=== PATIENT | female | born 1935 | race Caucasian/White ===

== ENCOUNTER 2018-05-27 07:59 | Emergency (ER) | payer MEDICARE, OTHER ==
[~2018-05-27] VITALS: Ht 175.3 cm; Wt 136.1 kg
[~2018-05-27 07:59] MED LIST: AMLO5TAB13; ASPI-306; GLIM1TAB2; HYDR12.56; LEVO25TA9 PO; LISI40TA; METF-372
[2018-05-27] MEDS ORDERED: DEXTROSE (50%) 50ML SYRG IV ONE (09:30)
[2018-05-27 09:40] LABS: Basophils # (auto) 0.1 uL; Basophils % (auto) 0.7 % (0.0-2.0); Eosinophils # (auto) 0.2 uL; Eosinophils % (auto) 2.2 % (0.0-7.0); Hematocrit 39.5 % (36.0-46.0); Lymphocytes # (auto) 2.1 uL; Lymphocytes % (auto) 21.1 % (10.0-50.0); Mean Corpuscular Volume 90.9 fL (80.0-100.0); Monocytes # (auto) 0.7 uL; Monocytes % (auto) 6.6 % (0.0-12.0); Neutrophils # (auto) 7.1 uL; Neutrophils % (auto) 69.4 % (37.0-80.0); Platelet Count (auto) 246 10^3/uL (140-450); Red Blood Cells 4.34 10^6/uL (4.0-5.20); Red Cell Distribution Width 14.7 % (11.8-14.3); White Blood Cell 10.2 10^3/uL (4.4-10.8)
[2018-05-27 09:47] LABS: Alanine Aminotransferase 17 U/L (13-56); Albumin 3.5 g/dL (3.4-5.0); Anion Gap 10 (5-15); Aspartate Aminotransferase 17 U/L (15-37); BUN/Creatinine Ratio 22.1; Blood Urea Nitrogen 27 mg/dL (7-18); Calcium 8.6 mg/dL (8.5-10.1); Carbon Dioxide 24 mmol/L (21-32); Chloride 108 mmol/L (98-107); GFR African American 54 mL/min; GFR Non-African American 45 mL/min; Glucose 68 mg/dL (74-106); Magnesium 2.4 mg/dL (1.6-2.6); Potassium 3.6 mmol/L (3.5-5.1); Sodium 142 mmol/L (136-145)
[2018-05-27 09:52] LABS: Alkaline Phosphatase 78 U/L (45-117); Bilirubin, Total 0.6 mg/dL (0.2-1.0); Total Protein 7.4 g/dL (6.4-8.2)
[2018-05-27 12:46] LABS: Urine Bacteria FEW /hpf (None Seen); Urine Blood Negative /uL (Negative); Urine Hyaline Cast FEW /lpf (0 - 2); Urine Specific Gravity 1.012 (1.001-1.035); Urine WBC 1 /hpf (0 - 5)
[2018-05-27 14:19] VITALS: BP 99/69
== END 2018-05-27 14:34 | disposition home or self-care (01) ==
LOC: EDBD 07:59 → ER 08:02
DX: E11.649 Type 2 diabetes mellitus with hypoglycemia without coma (principal); T38.3X5A Adverse effect of insulin and oral hypoglycemic [antidiabetic] drugs, initial encounter; I10 Essential (primary) hypertension; Z79.4 Long term (current) use of insulin; Z79.899 Other long term (current) drug therapy; Y92.89 Other specified places as the place of occurrence of the external cause
CPT/HCPCS: 36415; 70450; 71045; 80053; 81001; 82962; 83735; 84484; 85025; 93005; 96374; 99284; J7042

== ENCOUNTER 2018-12-04 07:17 | Inpatient (IN) | payer OTHER | END 2018-12-11 14:30 | disposition home or self-care (01) | LOC: ER 07:17 → TELE 07:19 → TELE-EAST 20:20 | PROC: 0FT44ZZ Resection of Gallbladder, Percutaneous Endoscopic Approach (ICD-10-PCS; principal; 2018-12-08 15:35) | DX: K80.10 Calculus of gallbladder with chronic cholecystitis without obstruction (principal); D68.9 Coagulation defect, unspecified; R10.9 Unspecified abdominal pain; I48.2 Chronic atrial fibrillation; Z79.01 Long term (current) use of anticoagulants; K82.8 Other specified diseases of gallbladder ==

== ENCOUNTER 2019-03-27 01:33 | Emergency (ER) | payer OTHER ==
[~2019-03-27] VITALS: Ht 157.5 cm; Wt 124.7 kg
[~2019-03-27 01:33] MED LIST changes: +ACET500T43 PO; -AMLO5TAB13; +AMLO5TAB15; -LISI40TA; +LISI40TA PO
[2019-03-27 02:50] LABS: Basophils # (auto) 0 uL; Basophils % (auto) 0.5 % (0.0-2.0); Eosinophils # (auto) 0.2 uL; Eosinophils % (auto) 2.6 % (0.0-7.0); Hematocrit 32.3 % (36.0-46.0); Hemoglobin 10.8 g/dL (12.2-16.2); Lymphocytes # (auto) 1.6 uL; Lymphocytes % (auto) 26.9 % (10.0-50.0); Mean Corpuscular Hemoglobin 30.4 pg (28.0-32.0); Mean Corpuscular Hgb Conc. 33.4 g/dL (32.0-36.0); Mean Corpuscular Volume 91.2 fL (80.0-100.0); Monocytes # (auto) 0.5 uL; Neutrophils # (auto) 3.7 uL; Nucleated Red Blood Cells % 0.1 %; Platelet Count (auto) 227 10^3/uL (140-450); Red Blood Cells 3.55 10^6/uL (4.0-5.20); Red Cell Distribution Width 16.1 % (11.8-14.3)
[2019-03-27 03:12] LABS: Alanine Aminotransferase 9 U/L (13-56); Albumin 3.3 g/dL (3.4-5.0); Anion Gap 7 (5-15); Aspartate Aminotransferase 15 U/L (15-37); BUN/Creatinine Ratio 16.7; Blood Alcohol < 3.0 mg/dL (0-5); Blood Urea Nitrogen 21 mg/dL (7-18); Calcium 8.3 mg/dL (8.5-10.1); Carbon Dioxide 25 mmol/L (21-32); Chloride 112 mmol/L (98-107); GFR African American 52 mL/min; GFR Non-African American 43 mL/min; Glucose 55 mg/dL (74-106); Potassium 3.3 mmol/L (3.5-5.1); Sodium 144 mmol/L (136-145)
[2019-03-27 03:17] LABS: Alkaline Phosphatase 64 U/L (45-117); Bilirubin, Total 0.7 mg/dL (0.2-1.0); Total Protein 6.7 g/dL (6.4-8.2)
[2019-03-27] MEDS ORDERED: POTASSIUM EFFERVESENT TAB 25 MEQ PO ONE (09:00)
[2019-03-27 11:58] VITALS: BP 116/56
[2019-03-27 13:11] LABS: Urine Bacteria NONE SEEN /hpf (None Seen); Urine Blood Negative /uL (Negative); Urine Mucus FEW (None Seen); Urine Specific Gravity 1.025 (1.001-1.035); Urine WBC 35 /hpf (0 - 5)
[2019-03-27 13:23] LABS: Alcohol, Urine < 3.0 mg/dL (0-5); Amphetamine Screen, Urine NEGATIVE (NEGATIVE); Barbiturate Scree,Urine NEGATIVE (NEGATIVE); Benzodiazephine Screen, Urine NEGATIVE (NEGATIVE); Cannabinoid Screen, Urine NEGATIVE (NEGATIVE); Cocaine Screen, Urine NEGATIVE (NEGATIVE); Opiate Scree,Urine NEGATIVE (NEGATIVE); Phencyclidine Screen, Urine NEGATIVE (NEGATIVE)
== END 2019-03-27 13:58 | disposition home or self-care (01) ==
LOC: EDBD 01:33 → ER 01:38
DX: E11.649 Type 2 diabetes mellitus with hypoglycemia without coma (principal); G93.41 Metabolic encephalopathy; E66.01 Morbid (severe) obesity due to excess calories; E87.6 Hypokalemia; E11.21 Type 2 diabetes mellitus with diabetic nephropathy; E46 Unspecified protein-calorie malnutrition; D53.9 Nutritional anemia, unspecified; R09.89 Other specified symptoms and signs involving the circulatory and respiratory systems; I25.10 Atherosclerotic heart disease of native coronary artery without angina pectoris; I11.0 Hypertensive heart disease with heart failure; I50.9 Heart failure, unspecified; Z90.49 Acquired absence of other specified parts of digestive tract; Z95.0 Presence of cardiac pacemaker; Z79.82 Long term (current) use of aspirin; Z79.899 Other long term (current) drug therapy
CPT/HCPCS: 36415; 70450; 71045; 80053; 80307; 80320; 81001; 82962; 84484; 85025; 93005; 94761

== ENCOUNTER 2019-04-01 08:31 | Emergency (ER) | payer OTHER ==
[~2019-04-01] VITALS: Ht 177.8 cm; Wt 122.5 kg
[2019-04-01 09:17] LABS: Basophils # (auto) 0.1 uL; Basophils % (auto) 0.5 % (0.0-2.0); Eosinophils # (auto) 0.1 uL; Eosinophils % (auto) 0.7 % (0.0-7.0); Hematocrit 35.8 % (36.0-46.0); Hemoglobin 11.6 g/dL (12.2-16.2); Lymphocytes # (auto) 1.6 uL; Lymphocytes % (auto) 15.6 % (10.0-50.0); Mean Corpuscular Hemoglobin 29.6 pg (28.0-32.0); Mean Corpuscular Hgb Conc. 32.5 g/dL (32.0-36.0); Mean Corpuscular Volume 91.2 fL (80.0-100.0); Monocytes # (auto) 0.7 uL; Monocytes % (auto) 7.2 % (0.0-12.0); Neutrophils # (auto) 7.9 uL; Nucleated Red Blood Cells % 0.1 %; Platelet Count (auto) 266 10^3/uL (140-450); Red Blood Cells 3.92 10^6/uL (4.0-5.20); Red Cell Distribution Width 16.1 % (11.8-14.3); White Blood Cell 10.4 10^3/uL (4.4-10.8)
[2019-04-01] MEDS ORDERED: ONDANSETRON HCL 4 MG/2 ML VIAL ONE (09:27)
[2019-04-01] MEDS ORDERED: MORPHINE SULFATE 4 MG/ML SYR/VIAL ONE (09:27)
[2019-04-01 09:33] LABS: Albumin 3.6 g/dL (3.4-5.0); Calcium 8.5 mg/dL (8.5-10.1); Potassium 4.3 mmol/L (3.5-5.1)
[2019-04-01 09:37] LABS: BUN/Creatinine Ratio 17.4; Bilirubin, Total 0.9 mg/dL (0.2-1.0); Partial Thromboplastin Time 39.8 sec (23.64-32.05); Total Protein 7.4 g/dL (6.4-8.2)
[2019-04-01] MEDS ORDERED: ONDANSETRON HCL 4 MG/2 ML VIAL IV ONE (09:45)
[2019-04-01] MEDS ORDERED: MORPHINE SULFATE 4 MG/ML SYR/VIAL IV ONE (09:45)
[2019-04-01 09:46] LABS: INR 4.25 (0.9-1.15)
[2019-04-01] MEDS ORDERED: WARF5TAB71 PO (09:50)
[2019-04-01 10:54] VITALS: BP 104/55
== END 2019-04-01 12:29 | disposition home or self-care (01) ==
LOC: ER 08:36
DX: S52.501A Unspecified fracture of the lower end of right radius, initial encounter for closed fracture (principal); D68.9 Coagulation defect, unspecified; E66.01 Morbid (severe) obesity due to excess calories; E11.649 Type 2 diabetes mellitus with hypoglycemia without coma; I10 Essential (primary) hypertension; Z68.38 Body mass index [BMI] 38.0-38.9, adult; Z79.899 Other long term (current) drug therapy; Z79.82 Long term (current) use of aspirin; W18.39XA Other fall on same level, initial encounter; Y93.89 Activity, other specified; Y92.89 Other specified places as the place of occurrence of the external cause; Y99.8 Other external cause status
CPT/HCPCS: 29125; 36415; 71045; 73110; 80053; 82962; 85025; 85610; 85730; 93005; 94761; 96374; 96375; 99284; J2270; J2405

== ENCOUNTER 2022-10-26 19:33 | Emergency (ER) | payer OTHER ==
[~2022-10-26] VITALS: Ht 177.8 cm; Wt 109.0 kg
[~2022-10-26 19:33] MED LIST changes: +AMLO-489; -AMLO5TAB15; +GLIM-5; -GLIM1TAB2; -LISI40TA PO; +LISI40TA11 PO; +WARF5TAB71 PO
[2022-10-26] MEDS ORDERED: ONDANSETRON ODT 4 MG TAB PO ONE (20:30)
[2022-10-26] MEDS ORDERED: HYDROcodone-ACET 5/325MG TAB PO ONE (20:30)
[2022-10-26 21:17] LABS: Basophils # (auto) 0.1 10 ^3/uL (0-0.2); Basophils % (auto) 0.7 % (0.0-2.0); Eosinophils # (auto) 0.3 10 ^3/uL (0-0.8); Hematocrit 38.9 % (36.0-46.0); Hemoglobin 12.9 g/dL (12.2-16.2); Lymphocytes # (auto) 2.4 10 ^3/uL (0.4-5.4); Lymphocytes % (auto) 25.2 % (10.0-50.0); Mean Corpuscular Hemoglobin 28.1 pg (28.0-32.0); Mean Corpuscular Volume 85.1 fL (80.0-100.0); Monocytes # (auto) 0.6 10 ^3/uL (0-1.3); Monocytes % (auto) 6.4 % (0.0-12.0); Neutrophils # (auto) 6.2 10 ^3/uL (1.6-8.6); Neutrophils % (auto) 64.7 % (37.0-80.0); Nucleated Red Blood Cells % 0.1 %; Red Blood Cells 4.58 10^6/uL (4.0-5.20); Red Cell Distribution Width 16.4 % (11.8-14.3); White Blood Cell 9.6 10^3/uL (4.4-10.8)
[2022-10-26 21:35] LABS: INR 2.14 (0.9-1.15); Partial Thromboplastin Time 36.3 sec (24.6-33.4)
[2022-10-26 21:40] LABS: Calcium 9.7 mg/dL (8.5-10.1); Potassium 4.3 mmol/L (3.5-5.1)
[2022-10-26 21:46] LABS: Albumin 3.6 g/dL (3.4-5.0); BUN/Creatinine Ratio 23.3 (10.0-20.0); Bilirubin, Total 0.5 mg/dL (0.2-1.0); Total Protein 7.5 g/dL (6.4-8.2)
[2022-10-27 02:20] VITALS: BP 122/70
== END 2022-10-27 02:25 | disposition home or self-care (01) ==
LOC: ER 19:33
DX: E11.65 Type 2 diabetes mellitus with hyperglycemia (principal); E11.22 Type 2 diabetes mellitus with diabetic chronic kidney disease; I13.0 Hypertensive heart and chronic kidney disease with heart failure and stage 1 through stage 4 chronic kidney disease, or unspecified chronic kidney disease; N18.9 Chronic kidney disease, unspecified; I50.9 Heart failure, unspecified; K57.90 Diverticulosis of intestine, part unspecified, without perforation or abscess without bleeding; Z90.49 Acquired absence of other specified parts of digestive tract
CPT/HCPCS: 36415; 71045; 74176; 80053; 82010; 82962; 83605; 83690; 83880; 83930; 84484; 85025; 85610; 85730; 99284; Q0162

== ENCOUNTER 2022-11-02 14:22 | Inpatient (IN) | payer OTHER ==
[~2022-11-02] VITALS: Ht 177.8 cm; Wt 113.9 kg
[2022-11-02] VITALS (14 sets, daily range): BP systolic 100–131; BP diastolic 35–55
[~2022-11-02 14:22] MED LIST changes: -AMLO-489; +AMLO1TAB22; +GLIM-38; -GLIM-5; -HYDR12.56; +HYDR12.59; -LISI40TA11 PO; +LISI40TA16 PO; +WARF-66 PO; -WARF5TAB71 PO
[2022-11-02] MEDS ORDERED: MORPHINE SULFATE INJ 2 MG/ml SYRG IV ONE (16:00)
[2022-11-02] MEDS ORDERED: metroNIDAZOLE 500MG/100ML 100 ML IV ONE (16:00)
[2022-11-02] MEDS ORDERED: cefTRIAXone 1GM/50ML D5W 50 ML IV ONE (16:00)
[2022-11-02] MEDS ORDERED: ONDANSETRON HCL 4 MG/2 ML VIAL IV ONE (16:00)
[2022-11-02] MEDS ORDERED: SODIUM CHLORIDE 0.9% 1,000 ML IV ONE (16:00)
[2022-11-02 16:27] LABS: Hematocrit 38.3 % (36.0-46.0); Hemoglobin 12.4 g/dL (12.2-16.2); Mean Corpuscular Hemoglobin 27.3 pg (28.0-32.0); Mean Corpuscular Hgb Conc. 32.4 g/dL (32.0-36.0); Mean Corpuscular Volume 84.4 fL (80.0-100.0); Red Blood Cells 4.54 10^6/uL (4.0-5.20); Red Cell Distribution Width 17.3 % (11.8-14.3); White Blood Cell 9.4 10^3/uL (4.4-10.8)
[2022-11-02] MEDS ORDERED: PIPERACILLIN-TAZOB 3.375GM 100 ML IV ONE (16:30)
[2022-11-02 16:37] LABS: Basophils % (manual) 0 (0.0-2.0); Blast Cells 0; Eosinophils % (manual) 0 (0-7); Myelocytes % 0; Promyelocytes % 0; Reactive Lymphocytes 0
[2022-11-02 16:44] LABS: Albumin 2.8 g/dL (3.4-5.0); Calcium 8.2 mg/dL (8.5-10.1); Potassium 3.3 mmol/L (3.5-5.1)
[2022-11-02 16:48] LABS: BUN/Creatinine Ratio 34.9 (10.0-20.0); Bilirubin, Total 0.4 mg/dL (0.2-1.0); Total Protein 6.8 g/dL (6.4-8.2)
[2022-11-02 16:58] LABS: Urine Bacteria NONE SEEN /hpf (None Seen); Urine Blood Negative /uL (Negative); Urine Hyaline Cast FEW /lpf (0 - 2); Urine Mucus FEW (None Seen); Urine Specific Gravity 1.027 (1.001-1.035); Urine WBC 8 /hpf (0 - 5)
[2022-11-02 17:02] LABS: Band Neutrophils % (manual) 11; Lymphocytes % (manual) 9 (10.0-50.0); Metamyelocytes % 4; Monocytes % (manual) 1 (0-12)
[2022-11-02 17:12] LABS: Partial Thromboplastin Time 49.7 sec (24.6-33.4)
[2022-11-02 17:21] LABS: INR 5.89 (0.9-1.15)
[2022-11-02] MEDS ORDERED: SUCCINYLCHOLINE CHLORIDE 20 MG/ML 10ML VIAL IV ONE (17:22)
[2022-11-02] MEDS ORDERED: PHYTONADIONE (VIT K)10 MG/ML 1ML VIAL SUBCUT ONE ×2 (17:30)
[2022-11-02] MEDS ORDERED: D5W/SOD CHL 0.45%/KCL 20MEQ 1,000 ML IV ONE (17:45)
[2022-11-02] MEDS ORDERED: DOCUSATE SOD 100 MG CAP PO PRN (21:00)
[2022-11-02] MEDS ORDERED: DEXTROSE (50%) 50ML SYRG IV PRN (21:00)
[2022-11-02] MEDS ORDERED: ACETAMINOPHEN 325 MG TAB PO PRN (21:00)
[2022-11-02] MEDS ORDERED: NITROGLYCERIN 0.4 MG SL TAB SL PRN (21:00)
[2022-11-02] MEDS ORDERED: SODIUM CHLORIDE 0.9% 1,000 ML IV SCH (21:00)
[2022-11-02] MEDS ORDERED: MORPHINE SULFATE INJ 2 MG/ml SYRG IV PRN (21:00)
[2022-11-02] MEDS: MORPHINE SULFATE INJ 2 MG/ml SYRG IV PRN (21:42)
[2022-11-02] MEDS: FAMOTIDINE (10MG/ML) 2ML VL IV SCH (21:57)
[2022-11-02] MEDS ORDERED: phytonadione 1 ML ONE (22:00)
[2022-11-03] VITALS (73 sets, daily range): BP systolic 71–136; BP diastolic 32–88
[2022-11-03] MEDS: ACCU-CHEK COMFORT CURVE STRIP VI SCH ×5 (00:33→23:43)
[2022-11-03] MEDS: InsuLIN REG 1unit/0.01ml Soln (100units/ml) SC SCH ×5 (00:34→23:44)
[2022-11-03] MEDS: metroNIDAZOLE 500MG/100ML 100 ML IV SCH ×3 (00:37→21:26)
[2022-11-03] MEDS: MORPHINE SULFATE INJ 2 MG/ml SYRG IV PRN ×2 (02:08→08:39)
[2022-11-03 04:47] LABS: Basophils # (auto) 0 10 ^3/uL (0-0.2); Basophils % (auto) 0.2 % (0.0-2.0); Eosinophils # (auto) 0 10 ^3/uL (0-0.8); Eosinophils % (auto) 0.1 % (0.0-7.0); Hematocrit 35.2 % (36.0-46.0); Hemoglobin 11.8 g/dL (12.2-16.2); Lymphocytes # (auto) 1.6 10 ^3/uL (0.4-5.4); Lymphocytes % (auto) 11.2 % (10.0-50.0); Mean Corpuscular Hemoglobin 27.8 pg (28.0-32.0); Mean Corpuscular Hgb Conc. 33.5 g/dL (32.0-36.0); Monocytes # (auto) 0.4 10 ^3/uL (0-1.3); Monocytes % (auto) 2.9 % (0.0-12.0); Neutrophils # (auto) 12.2 10 ^3/uL (1.6-8.6); Neutrophils % (auto) 85.6 % (37.0-80.0); Red Blood Cells 4.24 10^6/uL (4.0-5.20); Red Cell Distribution Width 16.7 % (11.8-14.3); White Blood Cell 14.3 10^3/uL (4.4-10.8)
[2022-11-03 04:59] LABS: Partial Thromboplastin Time 33.8 sec (24.6-33.4)
[2022-11-03 05:02] LABS: Albumin 2.3 g/dL (3.4-5.0)
[2022-11-03 05:03] LABS: INR 4.17 (0.9-1.15)
[2022-11-03 05:06] LABS: BUN/Creatinine Ratio 37.7 (10.0-20.0); Bilirubin, Total 0.3 mg/dL (0.2-1.0); Total Protein 5.3 g/dL (6.4-8.2)
[2022-11-03] MEDS ORDERED: PHYTONADIONE (VIT K)10 MG/ML 1ML VIAL SUBCUT ONE (05:30)
[2022-11-03] MEDS: POTASSIUM CHL 20MEQ/100ML 100 ML IV SCH ×2 (05:57→09:47)
[2022-11-03] MEDS: LEVOTHYROXINE SODIUM 25 MCG TAB PO SCH (07:00)
[2022-11-03] MEDS ORDERED: cefTRIAXone 1GM/50ML D5W 50 ML IV SCH (09:00)
[2022-11-03] MEDS: FAMOTIDINE (10MG/ML) 2ML VL IV SCH ×2 (11:37→21:26)
[2022-11-03 11:42] LABS: INR 2.41 (0.9-1.15); Partial Thromboplastin Time 43.2 sec (24.6-33.4)
[2022-11-03] MEDS ORDERED: HYDROmorphone HCL 2 MG/ML VL/or syr ONE (12:04)
[2022-11-03] MEDS ORDERED: fentaNYL CITRATE 100 MCG/2 ML VL ONE (12:04)
[2022-11-03] MEDS ORDERED: MIDAZOLAM HCL 2MG/2ML 2ml VIAL (1mg/ml) ONE (12:05)
[2022-11-03] MEDS ORDERED: fentaNYL CITRATE 5 ML ONE (12:16)
[2022-11-03] MEDS ORDERED: NOREPINEPHRINE 8 MG/250ML KIT 0 ML IV ONE (13:02)
[2022-11-03] MEDS ORDERED: ROCURONIUM 10MG/ML 10ML VIAL IV ONE (13:24)
[2022-11-03] MEDS ORDERED: POVIDONE IODINE 10 % TOPICAL OINT 30GM TOP ONE (14:28)
[2022-11-03] MEDS ORDERED: MIDAZOLAM DRIP 50 mg/50mL 50 ML IV SCH (15:00)
[2022-11-03] MEDS: NOREPINEPHRINE 8 MG/250ML KIT 250 ML IV SCH (15:15)
[2022-11-03] MEDS: MIDAZOLAM DRIP 50 mg/50mL 50 ML IV SCH (15:15)
[2022-11-03] MEDS: fentaNYL Drip 2500mCg/250mlNS 250 ML IV SCH ×2 (15:15→21:34)
[2022-11-03] MEDS ORDERED: NOREPINEPHRINE 8 MG/250ML KIT 250 ML IV ONE (15:20)
[2022-11-03] MEDS: D5W/SOD CHL 0.45%/KCL 20MEQ 1,000 ML IV SCH ×2 (16:01→23:46)
[2022-11-03] MEDS: PIPERACILLIN-TAZOB 3.375GM 100 ML IV SCH (23:46)
[2022-11-04] VITALS (109 sets, daily range): BP systolic 69–252; BP diastolic 39–242
[2022-11-04] MEDS: NOREPINEPHRINE 8 MG/250ML KIT 250 ML IV SCH ×2 (01:01→21:18)
[2022-11-04 04:35] LABS: INR 2.42 (0.9-1.15); Partial Thromboplastin Time 29.8 sec (24.6-33.4)
[2022-11-04 04:44] LABS: Basophils # (auto) 0 10 ^3/uL (0-0.2); Eosinophils # (auto) 0 10 ^3/uL (0-0.8); Hematocrit 40.6 % (36.0-46.0); Hemoglobin 13.2 g/dL (12.2-16.2); Lymphocytes # (auto) 1.4 10 ^3/uL (0.4-5.4); Lymphocytes % (auto) 6.9 % (10.0-50.0); Mean Corpuscular Hgb Conc. 32.5 g/dL (32.0-36.0); Mean Corpuscular Volume 86.1 fL (80.0-100.0); Monocytes # (auto) 0.5 10 ^3/uL (0-1.3); Monocytes % (auto) 2.5 % (0.0-12.0); Neutrophils # (auto) 18.5 10 ^3/uL (1.6-8.6); Neutrophils % (auto) 90.6 % (37.0-80.0); Nucleated Red Blood Cells % 0.1 %; Red Blood Cells 4.71 10^6/uL (4.0-5.20); Red Cell Distribution Width 17.3 % (11.8-14.3); White Blood Cell 20.4 10^3/uL (4.4-10.8)
[2022-11-04] MEDS: metroNIDAZOLE 500MG/100ML 100 ML IV SCH ×3 (05:04→21:58)
[2022-11-04] MEDS: ACCU-CHEK COMFORT CURVE STRIP VI SCH ×4 (05:41→23:47)
[2022-11-04] MEDS: InsuLIN REG 1unit/0.01ml Soln (100units/ml) SC SCH ×4 (05:51→23:51)
[2022-11-04] MEDS: LEVOTHYROXINE SODIUM 25 MCG TAB PO SCH (05:52)
[2022-11-04 07:08] LABS: Potassium 4.5 mmol/L (3.5-5.1)
[2022-11-04 07:16] LABS: BUN/Creatinine Ratio 22.4 (10.0-20.0); Calcium 7.6 mg/dL (8.5-10.1)
[2022-11-04] MEDS: FAMOTIDINE (10MG/ML) 2ML VL IV SCH (08:01)
[2022-11-04] MEDS: PANTOPRAZOLE 40 MG/10 ML VIAL INJ IV SCH (08:01)
[2022-11-04] MEDS: PIPERACILLIN-TAZOB 3.375GM 100 ML IV SCH ×3 (08:01→23:39)
[2022-11-04] MEDS ORDERED: cefTRIAXone 1GM/50ML D5W 50 ML IV SCH (09:00)
[2022-11-04] MEDS: D5W/SOD CHL 0.45%/KCL 20MEQ 1,000 ML IV SCH (09:06)
[2022-11-04] MEDS ORDERED: SODIUM CHLORIDE 0.9% 500 ML IV ONE (11:30)
[2022-11-04] MEDS ORDERED: VANCOMYCIN PER PHARMACY 0 MG IV SCH (12:15)
[2022-11-04] MEDS: VANCOMYCIN 1GM/250ML 250 ML IV SCH (12:36)
[2022-11-04] MEDS ORDERED: FUROSEMIDE 100 MG/10ML VIAL IV ONE (13:15)
[2022-11-04] MEDS ORDERED: TPN PER PHARMACY 0 ML IV SCH (13:30)
[2022-11-04 14:34] LABS: Magnesium 1.8 mg/dL (1.6-2.6); Phosphorus 2.2 mg/dL (2.5-4.90)
[2022-11-04] MEDS: MIDAZOLAM DRIP 50 mg/50mL 50 ML IV SCH (15:15)
[2022-11-04] MEDS ORDERED: LIDOCAINE 1% (LOCAL ANESTH.) PF 5ml SDV ID ONE (16:30)
[2022-11-04] MEDS: SODIUM CHLORIDE 0.9% 1,000 ML IV SCH (17:31)
[2022-11-04] MEDS ORDERED: SODIUM PHOSPH 24MEQ(18MMOL) IN NS 100 ML IV ONE (18:30)
[2022-11-04] MEDS: AMINO ACID INFUSION IN D10W 1,000 ML IV NR (20:03)
[2022-11-04] MEDS: fentaNYL Drip 2500mCg/250mlNS 250 ML IV SCH (21:19)
[2022-11-04] MEDS: SODIUM CHLOR 0.9% PF (SALINE LOCK) 10ML VIAL/SYR IV SCH (21:58)
[2022-11-05] VITALS (78 sets, daily range): BP systolic 84–148; BP diastolic 35–101
[2022-11-05] MEDS ORDERED: DEXTROSE (50%) 50ML SYRG IV SCH
[2022-11-05] MEDS: SODIUM CHLORIDE 0.9% 1,000 ML IV SCH ×3 (03:21→20:06)
[2022-11-05 04:33] LABS: Basophils # (auto) 0 10 ^3/uL (0-0.2); Basophils % (auto) 0.1 % (0.0-2.0); Eosinophils # (auto) 0 10 ^3/uL (0-0.8); Hematocrit 33.6 % (36.0-46.0); Lymphocytes # (auto) 0.9 10 ^3/uL (0.4-5.4); Lymphocytes % (auto) 4.5 % (10.0-50.0); Mean Corpuscular Hemoglobin 27.8 pg (28.0-32.0); Mean Corpuscular Hgb Conc. 32.8 g/dL (32.0-36.0); Mean Corpuscular Volume 84.8 fL (80.0-100.0); Monocytes # (auto) 0.4 10 ^3/uL (0-1.3); Monocytes % (auto) 2.1 % (0.0-12.0); Neutrophils # (auto) 19.1 10 ^3/uL (1.6-8.6); Neutrophils % (auto) 93.3 % (37.0-80.0); Nucleated Red Blood Cells % 0.1 %; Red Blood Cells 3.96 10^6/uL (4.0-5.20); Red Cell Distribution Width 17.4 % (11.8-14.3); White Blood Cell 20.5 10^3/uL (4.4-10.8)
[2022-11-05 04:50] LABS: Magnesium 1.6 mg/dL (1.6-2.6); Potassium 3.7 mmol/L (3.5-5.1)
[2022-11-05 04:56] LABS: Albumin 1.9 g/dL (3.4-5.0); BUN/Creatinine Ratio 29.1 (10.0-20.0); Bilirubin, Total 0.2 mg/dL (0.2-1.0); Calcium 7.8 mg/dL (8.5-10.1); Phosphorus 1.3 mg/dL (2.5-4.90); Total Protein 5.3 g/dL (6.4-8.2)
[2022-11-05] MEDS: InsuLIN REG 1unit/0.01ml Soln (100units/ml) SC SCH ×3 (05:52→18:00)
[2022-11-05] MEDS: metroNIDAZOLE 500MG/100ML 100 ML IV SCH (05:53)
[2022-11-05] MEDS: ACCU-CHEK COMFORT CURVE STRIP VI SCH ×3 (05:53→17:51)
[2022-11-05] MEDS: LEVOTHYROXINE SODIUM 25 MCG TAB PO SCH (06:56)
[2022-11-05] MEDS: PIPERACILLIN-TAZOB 3.375GM 100 ML IV SCH ×2 (08:22→16:29)
[2022-11-05] MEDS: VANCOMYCIN 1GM/250ML 250 ML IV SCH (08:22)
[2022-11-05] MEDS: SODIUM CHLOR 0.9% PF (SALINE LOCK) 10ML VIAL/SYR IV SCH ×2 (09:36→22:12)
[2022-11-05] MEDS: PANTOPRAZOLE 40 MG/10 ML VIAL INJ IV SCH (09:36)
[2022-11-05] MEDS ORDERED: POTASSIUM PHOSPHATE 22 MEQ in SODIUM CHL 0.9% 100 ML IV ONE ×2 (11:45→16:15)
[2022-11-05] MEDS: MAGNESIUM SULFATE 1GM/100ML 100 ML IV SCH ×2 (12:16→14:05)
[2022-11-05] MEDS: MIDAZOLAM DRIP 50 mg/50mL 50 ML IV SCH (15:15)
[2022-11-05] MEDS ORDERED: SODIUM PHOSPHATES 24 MEQ in SODIUM CHL 0.9% 100 ML IV ONE (16:00)
[2022-11-05] MEDS: MORPHINE SULFATE INJ 2 MG/ml SYRG IV PRN (18:04)
[2022-11-05] MEDS ORDERED: FUROSEMIDE 40 MG/4 ML VIAL IV ONE (19:15)
[2022-11-05] MEDS ORDERED: TPN PER PHARMACY IV NR ×9 (20:00)
[2022-11-05] MEDS: AMINO ACID INFUSION IN D10W 1,000 ML IV NR (20:02)
[2022-11-05] MEDS ORDERED: ACETAMINOPHEN IV 1000 MG/100ML (10MG/ML) IV ONE (21:15)
[2022-11-05] MEDS ORDERED: ACETAMINOPHEN IV 1000 MG/100ML (10MG/ML) IV PRN (21:45)
[2022-11-06] VITALS (30 sets, daily range): BP systolic 106–148; BP diastolic 50–96
[2022-11-06] MEDS: HYDROmorphone HCL 2 MG/ML VL/or syr IV PRN ×3 (00:29→19:25)
[2022-11-06] MEDS: PIPERACILLIN-TAZOB 3.375GM 100 ML IV SCH ×3 (00:35→17:35)
[2022-11-06] MEDS: ACCU-CHEK COMFORT CURVE STRIP VI SCH ×4 (01:16→17:43)
[2022-11-06] MEDS: InsuLIN REG 1unit/0.01ml Soln (100units/ml) SC SCH ×4 (01:17→17:45)
[2022-11-06] MEDS: VANCOMYCIN 1GM/250ML 250 ML IV SCH ×2 (02:36→20:37)
[2022-11-06 04:28] LABS: Potassium 3.3 mmol/L (3.5-5.1)
[2022-11-06 04:35] LABS: Albumin 1.8 g/dL (3.4-5.0); BUN/Creatinine Ratio 26.7 (10.0-20.0); Bilirubin, Total 0.4 mg/dL (0.2-1.0); Calcium 7.6 mg/dL (8.5-10.1); Magnesium 1.7 mg/dL (1.6-2.6); Phosphorus 1.7 mg/dL (2.5-4.90); Total Protein 5.2 g/dL (6.4-8.2)
[2022-11-06] MEDS: LEVOTHYROXINE SODIUM 25 MCG TAB PO SCH (06:28)
[2022-11-06] MEDS: PANTOPRAZOLE 40 MG/10 ML VIAL INJ IV SCH (10:51)
[2022-11-06] MEDS: SODIUM CHLOR 0.9% PF (SALINE LOCK) 10ML VIAL/SYR IV SCH (10:51)
[2022-11-06] MEDS ORDERED: POTASSIUM PHOSPHATE 44 MEQ in D5W 5% 250 ML IV ONE (12:15)
[2022-11-06] MEDS: MAGNESIUM SULFATE 1GM/100ML 100 ML IV SCH ×2 (12:42→14:47)
[2022-11-06] MEDS: MIDAZOLAM DRIP 50 mg/50mL 50 ML IV SCH (15:15)
[2022-11-06] MEDS: NOREPINEPHRINE 8 MG/250ML KIT 250 ML IV SCH (15:15)
[2022-11-06] MEDS: fentaNYL Drip 2500mCg/250mlNS 250 ML IV SCH (15:15)
[2022-11-06] MEDS: SODIUM CHLORIDE 0.9% 1,000 ML IV SCH (15:15)
[2022-11-06] MEDS: MORPHINE SULFATE INJ 2 MG/ml SYRG IV PRN (17:37)
[2022-11-06] MEDS ORDERED: TPN PER PHARMACY IV NR ×9 (20:00)
[2022-11-06] MEDS: ONDANSETRON HCL 4 MG/2 ML VIAL IV PRN (23:45)
[2022-11-07] VITALS (36 sets, daily range): BP systolic 114–161; BP diastolic 62–94
[2022-11-07] MEDS: SODIUM CHLOR 0.9% PF (SALINE LOCK) 10ML VIAL/SYR IV SCH ×3 (00:01→22:52)
[2022-11-07] MEDS: PIPERACILLIN-TAZOB 3.375GM 100 ML IV SCH ×3 (01:11→16:29)
[2022-11-07] MEDS: ACCU-CHEK COMFORT CURVE STRIP VI SCH ×4 (01:12→17:53)
[2022-11-07] MEDS: InsuLIN REG 1unit/0.01ml Soln (100units/ml) SC SCH ×4 (01:15→17:58)
[2022-11-07 04:29] LABS: Basophils # (auto) 0 10 ^3/uL (0-0.2); Basophils % (auto) 0.1 % (0.0-2.0); Eosinophils # (auto) 0 10 ^3/uL (0-0.8); Eosinophils % (auto) 0.4 % (0.0-7.0); Hematocrit 34.6 % (36.0-46.0); Hemoglobin 11.5 g/dL (12.2-16.2); Lymphocytes # (auto) 1.1 10 ^3/uL (0.4-5.4); Lymphocytes % (auto) 8.4 % (10.0-50.0); Mean Corpuscular Hemoglobin 27.9 pg (28.0-32.0); Mean Corpuscular Hgb Conc. 33.3 g/dL (32.0-36.0); Mean Corpuscular Volume 83.8 fL (80.0-100.0); Monocytes # (auto) 0.6 10 ^3/uL (0-1.3); Monocytes % (auto) 4.1 % (0.0-12.0); Neutrophils # (auto) 11.8 10 ^3/uL (1.6-8.6); Red Blood Cells 4.13 10^6/uL (4.0-5.20); Red Cell Distribution Width 16.7 % (11.8-14.3); White Blood Cell 13.5 10^3/uL (4.4-10.8)
[2022-11-07 04:44] LABS: Potassium 3.4 mmol/L (3.5-5.1)
[2022-11-07 04:47] LABS: Albumin 1.8 g/dL (3.4-5.0); BUN/Creatinine Ratio 29.3 (10.0-20.0); Magnesium 1.9 mg/dL (1.6-2.6); Phosphorus 2.4 mg/dL (2.5-4.90)
[2022-11-07 04:50] LABS: Bilirubin, Total 0.5 mg/dL (0.2-1.0); Total Protein 5.7 g/dL (6.4-8.2)
[2022-11-07] MEDS: SODIUM CHLORIDE 0.9% 1,000 ML IV SCH (06:19)
[2022-11-07] MEDS: LEVOTHYROXINE SODIUM 25 MCG TAB PO SCH (07:00)
[2022-11-07] MEDS: ONDANSETRON HCL 4 MG/2 ML VIAL IV PRN ×3 (09:51→20:20)
[2022-11-07] MEDS: PANTOPRAZOLE 40 MG/10 ML VIAL INJ IV SCH (09:51)
[2022-11-07] MEDS: POTASSIUM PHOSPHATE 26.4 MEQ in SODIUM CHL 0.9% 100 ML IV ONE ×2 (13:06→13:14)
[2022-11-07] MEDS: VANCOMYCIN 1GM/250ML 250 ML IV SCH (15:00)
[2022-11-07] MEDS: HYDROmorphone HCL 2 MG/ML VL/or syr IV PRN (20:24)
[2022-11-07] MEDS: TPN PER PHARMACY IV NR ×10 (20:44)
[2022-11-07] MEDS: ENOXAPARIN SOD 40 MG/0.4 ML SYRINGE SC SCH (22:54)
[2022-11-08] VITALS (72 sets, daily range): BP systolic 97–143; BP diastolic 48–75
[2022-11-08] MEDS: PIPERACILLIN-TAZOB 3.375GM 100 ML IV SCH ×3 (00:46→16:01)
[2022-11-08] MEDS: ACCU-CHEK COMFORT CURVE STRIP VI SCH ×4 (00:50→17:50)
[2022-11-08] MEDS: InsuLIN REG 1unit/0.01ml Soln (100units/ml) SC SCH ×4 (00:51→17:52)
[2022-11-08 04:44] LABS: Basophils # (auto) 0 10 ^3/uL (0-0.2); Basophils % (auto) 0.1 % (0.0-2.0); Eosinophils # (auto) 0.1 10 ^3/uL (0-0.8); Hematocrit 31.7 % (36.0-46.0); Lymphocytes # (auto) 1.3 10 ^3/uL (0.4-5.4); Lymphocytes % (auto) 10.9 % (10.0-50.0); Mean Corpuscular Hemoglobin 28.5 pg (28.0-32.0); Mean Corpuscular Hgb Conc. 34.5 g/dL (32.0-36.0); Mean Corpuscular Volume 82.5 fL (80.0-100.0); Monocytes # (auto) 0.9 10 ^3/uL (0-1.3); Monocytes % (auto) 7.3 % (0.0-12.0); Neutrophils # (auto) 9.4 10 ^3/uL (1.6-8.6); Neutrophils % (auto) 80.7 % (37.0-80.0); Red Blood Cells 3.85 10^6/uL (4.0-5.20); Red Cell Distribution Width 16.6 % (11.8-14.3); White Blood Cell 11.7 10^3/uL (4.4-10.8)
[2022-11-08 05:03] LABS: Potassium 3.7 mmol/L (3.5-5.1)
[2022-11-08] MEDS: ONDANSETRON HCL 4 MG/2 ML VIAL IV PRN (05:06)
[2022-11-08] MEDS: HYDROmorphone HCL 2 MG/ML VL/or syr IV PRN (05:08)
[2022-11-08 05:11] LABS: Albumin 1.7 g/dL (3.4-5.0); BUN/Creatinine Ratio 28.6 (10.0-20.0); Calcium 8.1 mg/dL (8.5-10.1); Magnesium 1.8 mg/dL (1.6-2.6)
[2022-11-08 05:14] LABS: Bilirubin, Total 0.4 mg/dL (0.2-1.0); Phosphorus 2.3 mg/dL (2.5-4.90); Total Protein 5.3 g/dL (6.4-8.2)
[2022-11-08] MEDS: LEVOTHYROXINE SODIUM 25 MCG TAB PO SCH (06:14)
[2022-11-08] MEDS: SODIUM CHLORIDE 0.9% 1,000 ML IV SCH (07:15)
[2022-11-08] MEDS: VANCOMYCIN 1GM/250ML 250 ML IV SCH (08:17)
[2022-11-08] MEDS: PANTOPRAZOLE 40 MG/10 ML VIAL INJ IV SCH (10:07)
[2022-11-08] MEDS: ENOXAPARIN SOD 40 MG/0.4 ML SYRINGE SC SCH ×2 (10:10→20:56)
[2022-11-08] MEDS ORDERED: MAGNESIUM SULFATE 1GM/100ML 100 ML IV ONE (10:45)
[2022-11-08] MEDS: SODIUM CHLOR 0.9% PF (SALINE LOCK) 10ML VIAL/SYR IV SCH ×2 (12:21→20:55)
[2022-11-08] MEDS: TPN PER PHARMACY IV NR ×10 (19:46)
[2022-11-08] MEDS: FAT EMULSION IV NR ×9 (20:50)
[2022-11-08] MEDS: POTASSIUM PHOSPHATE IV NR ×9 (20:50)
[2022-11-08] MEDS: POTASSIUM CHLORIDE IV NR ×9 (20:50)
[2022-11-08] MEDS: [UNRECOGNIZED DRUG - OTHER] IV NR ×9 (20:50)
[2022-11-08] MEDS: HYDROcodone-ACET 5/325MG TAB PO PRN (22:30)
[2022-11-09] VITALS (24 sets, daily range): BP systolic 101–137; BP diastolic 49–82
[2022-11-09] MEDS: PIPERACILLIN-TAZOB 3.375GM 100 ML IV SCH ×4 (00:15→23:55)
[2022-11-09] MEDS: ACCU-CHEK COMFORT CURVE STRIP VI SCH ×5 (00:15→23:55)
[2022-11-09] MEDS: InsuLIN REG 1unit/0.01ml Soln (100units/ml) SC SCH ×4 (00:20→18:25)
[2022-11-09] MEDS: HYDROcodone-ACET 5/325MG TAB PO PRN ×3 (03:09→21:44)
[2022-11-09 04:23] LABS: Albumin 1.8 g/dL (3.4-5.0); BUN/Creatinine Ratio 29.2 (10.0-20.0); Calcium 8.2 mg/dL (8.5-10.1)
[2022-11-09 04:39] LABS: Bilirubin, Total 0.3 mg/dL (0.2-1.0); Total Protein 5.4 g/dL (6.4-8.2)
[2022-11-09] MEDS: SODIUM CHLORIDE 0.9% 1,000 ML IV SCH ×2 (05:29→15:30)
[2022-11-09] MEDS: LEVOTHYROXINE SODIUM 25 MCG TAB PO SCH (05:35)
[2022-11-09] MEDS: PANTOPRAZOLE 40 MG/10 ML VIAL INJ IV SCH (09:38)
[2022-11-09] MEDS: SODIUM CHLOR 0.9% PF (SALINE LOCK) 10ML VIAL/SYR IV SCH ×2 (09:39→21:02)
[2022-11-09] MEDS: ENOXAPARIN SOD 40 MG/0.4 ML SYRINGE SC SCH ×2 (09:39→21:03)
[2022-11-09] MEDS ORDERED: D5W 5% IV ONE (13:00)
[2022-11-09] MEDS ORDERED: SODIUM PHOSPHATES IV ONE (13:00)
[2022-11-09] MEDS ORDERED: ACETAMINOPHEN 325 MG TAB PO PRN (15:30)
[2022-11-09] MEDS: TPN PER PHARMACY IV NR ×9 (19:47)
[2022-11-09] MEDS: POTASSIUM PHOSPHATE IV NR ×9 (19:55)
[2022-11-09] MEDS: POTASSIUM CHLORIDE IV NR ×9 (19:55)
[2022-11-09] MEDS: [UNRECOGNIZED DRUG - OTHER] IV NR ×9 (19:55)
[2022-11-09] MEDS: FAT EMULSION IV NR ×9 (19:55)
[2022-11-10] VITALS (24 sets, daily range): BP systolic 101–138; BP diastolic 39–97
[2022-11-10] MEDS: InsuLIN REG 1unit/0.01ml Soln (100units/ml) SC SCH ×5 (00:04→23:54)
[2022-11-10 04:16] LABS: Basophils # (auto) 0 10 ^3/uL (0-0.2); Basophils % (auto) 0.4 % (0.0-2.0); Eosinophils # (auto) 0.3 10 ^3/uL (0-0.8); Eosinophils % (auto) 2.8 % (0.0-7.0); Hematocrit 33.8 % (36.0-46.0); Hemoglobin 11.1 g/dL (12.2-16.2); Lymphocytes # (auto) 1.4 10 ^3/uL (0.4-5.4); Lymphocytes % (auto) 14.4 % (10.0-50.0); Mean Corpuscular Hemoglobin 27.7 pg (28.0-32.0); Mean Corpuscular Hgb Conc. 32.9 g/dL (32.0-36.0); Mean Corpuscular Volume 84.3 fL (80.0-100.0); Monocytes # (auto) 1.1 10 ^3/uL (0-1.3); Monocytes % (auto) 10.9 % (0.0-12.0); Neutrophils # (auto) 6.9 10 ^3/uL (1.6-8.6); Neutrophils % (auto) 71.5 % (37.0-80.0); Red Blood Cells 4.01 10^6/uL (4.0-5.20); Red Cell Distribution Width 16.2 % (11.8-14.3); White Blood Cell 9.7 10^3/uL (4.4-10.8)
[2022-11-10] MEDS: ONDANSETRON HCL 4 MG/2 ML VIAL IV PRN ×2 (04:31→16:54)
[2022-11-10 04:33] LABS: Potassium 3.9 mmol/L (3.5-5.1)
[2022-11-10 04:40] LABS: Albumin 1.9 g/dL (3.4-5.0); BUN/Creatinine Ratio 31.3 (10.0-20.0); Bilirubin, Total 0.4 mg/dL (0.2-1.0); Calcium 7.9 mg/dL (8.5-10.1); Magnesium 2.2 mg/dL (1.6-2.6); Phosphorus 2.4 mg/dL (2.5-4.90); Total Protein 5.2 g/dL (6.4-8.2)
[2022-11-10] MEDS: SODIUM CHLORIDE 0.9% 1,000 ML IV SCH ×3 (05:20→20:18)
[2022-11-10] MEDS: ACCU-CHEK COMFORT CURVE STRIP VI SCH ×4 (05:55→23:55)
[2022-11-10] MEDS: LEVOTHYROXINE SODIUM 25 MCG TAB PO SCH (05:58)
[2022-11-10] MEDS: PIPERACILLIN-TAZOB 3.375GM 100 ML IV SCH ×3 (07:38→23:49)
[2022-11-10] MEDS: SODIUM CHLOR 0.9% PF (SALINE LOCK) 10ML VIAL/SYR IV SCH ×2 (10:12→22:22)
[2022-11-10] MEDS: ENOXAPARIN SOD 40 MG/0.4 ML SYRINGE SC SCH ×2 (10:12→22:22)
[2022-11-10] MEDS ORDERED: PROMETHAZINE HCL 25 MG/ML 1ML IV PRN (18:00)
[2022-11-10] MEDS: HYDROcodone-ACET 5/325MG TAB PO PRN ×2 (18:03→22:22)
[2022-11-10] MEDS: TPN PER PHARMACY IV NR ×19 (20:05→20:06)
[2022-11-11] VITALS (23 sets, daily range): BP systolic 86–142; BP diastolic 42–65
[2022-11-11 04:53] LABS: Albumin 1.9 g/dL (3.4-5.0)
[2022-11-11 04:59] LABS: BUN/Creatinine Ratio 30.2 (10.0-20.0); Bilirubin, Total 0.4 mg/dL (0.2-1.0); Calcium 7.9 mg/dL (8.5-10.1); Magnesium 1.9 mg/dL (1.6-2.6); Phosphorus 2.2 mg/dL (2.5-4.90); Total Protein 5.3 g/dL (6.4-8.2)
[2022-11-11] MEDS: InsuLIN REG 1unit/0.01ml Soln (100units/ml) SC SCH ×3 (05:41→18:00)
[2022-11-11] MEDS: ACCU-CHEK COMFORT CURVE STRIP VI SCH ×3 (05:42→18:03)
[2022-11-11] MEDS: SODIUM CHLORIDE 0.9% 1,000 ML IV SCH ×3 (06:15→21:50)
[2022-11-11] MEDS: LEVOTHYROXINE SODIUM 25 MCG TAB PO SCH (06:32)
[2022-11-11] MEDS: ONDANSETRON HCL 4 MG/2 ML VIAL IV PRN (07:48)
[2022-11-11] MEDS: PIPERACILLIN-TAZOB 3.375GM 100 ML IV SCH ×2 (08:18→18:03)
[2022-11-11] MEDS: ENOXAPARIN SOD 40 MG/0.4 ML SYRINGE SC SCH ×2 (10:37→21:51)
[2022-11-11] MEDS: SODIUM CHLOR 0.9% PF (SALINE LOCK) 10ML VIAL/SYR IV SCH ×2 (10:39→21:51)
[2022-11-11] MEDS: HYDROcodone-ACET 5/325MG TAB PO PRN ×2 (10:44→15:57)
[2022-11-11] MEDS ORDERED: SODIUM PHOSPHATES 40 MEQ in D5W 5% 250 ML IV ONE (10:45)
[2022-11-11] MEDS ORDERED: MORPHINE SULFATE INJ 2 MG/ml SYRG IV PRN (15:15)
[2022-11-11] MEDS: MIDODRINE HCL 10 MG TAB PO SCH (18:03)
[2022-11-11] MEDS: TPN PER PHARMACY IV NR ×10 (19:58)
[2022-11-11] MEDS ORDERED: TPN PER PHARMACY IV NR ×9 (20:00)
[2022-11-12] VITALS (23 sets, daily range): BP systolic 101–132; BP diastolic 47–68
[2022-11-12] MEDS: PIPERACILLIN-TAZOB 3.375GM 100 ML IV SCH ×4 (01:06→23:44)
[2022-11-12] MEDS: InsuLIN REG 1unit/0.01ml Soln (100units/ml) SC SCH ×3 (01:07→11:55)
[2022-11-12] MEDS: ACCU-CHEK COMFORT CURVE STRIP VI SCH ×3 (01:07→11:32)
[2022-11-12] MEDS: MIDODRINE HCL 10 MG TAB PO SCH ×3 (06:14→17:39)
[2022-11-12] MEDS: LEVOTHYROXINE SODIUM 25 MCG TAB PO SCH (06:49)
[2022-11-12] MEDS: ONDANSETRON HCL 4 MG/2 ML VIAL IV PRN ×2 (08:51→22:30)
[2022-11-12] MEDS: SODIUM CHLOR 0.9% PF (SALINE LOCK) 10ML VIAL/SYR IV SCH ×2 (08:52→22:33)
[2022-11-12 10:13] LABS: Albumin 1.8 g/dL (3.4-5.0); Calcium 7.6 mg/dL (8.5-10.1); Magnesium 1.9 mg/dL (1.6-2.6); Potassium 4.3 mmol/L (3.5-5.1)
[2022-11-12 10:19] LABS: BUN/Creatinine Ratio 26.1 (10.0-20.0); Bilirubin, Total 0.3 mg/dL (0.2-1.0); Total Protein 5.2 g/dL (6.4-8.2)
[2022-11-12] MEDS: ENOXAPARIN SOD 40 MG/0.4 ML SYRINGE SC SCH ×2 (11:29→22:33)
[2022-11-12] MEDS: SODIUM CHLORIDE 0.9% 1,000 ML IV SCH (14:00)
[2022-11-12] MEDS: Ensure Pudding Vanilla 4 oz Cup PO SCH (14:46)
[2022-11-12] MEDS ORDERED: TPN PER PHARMACY IV NR ×9 (20:00)
[2022-11-12] MEDS: HYDROcodone-ACET 5/325MG TAB PO PRN (23:44)
[2022-11-13] VITALS (13 sets, daily range): BP systolic 92–121; BP diastolic 44–62
[2022-11-13] MEDS: MIDODRINE HCL 10 MG TAB PO SCH ×3 (06:20→17:46)
[2022-11-13] MEDS: SODIUM CHLORIDE 0.9% 1,000 ML IV SCH (06:21)
[2022-11-13] MEDS: LEVOTHYROXINE SODIUM 25 MCG TAB PO SCH (06:53)
[2022-11-13] MEDS: Ensure Pudding Vanilla 4 oz Cup PO SCH ×3 (08:00→17:46)
[2022-11-13] MEDS: PIPERACILLIN-TAZOB 3.375GM 100 ML IV SCH ×3 (10:13→23:36)
[2022-11-13] MEDS: ENOXAPARIN SOD 40 MG/0.4 ML SYRINGE SC SCH ×2 (10:13→21:23)
[2022-11-13] MEDS: SODIUM CHLOR 0.9% PF (SALINE LOCK) 10ML VIAL/SYR IV SCH ×2 (10:13→21:23)
[2022-11-13] MEDS: HYDROcodone-ACET 5/325MG TAB PO PRN (23:36)
[2022-11-14 05:00] VITALS: BP 108/58
[2022-11-14] MEDS: LEVOTHYROXINE SODIUM 25 MCG TAB PO SCH (06:07)
[2022-11-14] MEDS: MIDODRINE HCL 10 MG TAB PO SCH ×3 (06:07→20:01)
[2022-11-14] MEDS: ENOXAPARIN SOD 40 MG/0.4 ML SYRINGE SC SCH ×2 (08:46→22:59)
[2022-11-14] MEDS: PIPERACILLIN-TAZOB 3.375GM 100 ML IV SCH ×3 (08:46→23:54)
[2022-11-14] MEDS: SODIUM CHLOR 0.9% PF (SALINE LOCK) 10ML VIAL/SYR IV SCH ×2 (08:47→22:00)
[2022-11-14] MEDS: Ensure Pudding Vanilla 4 oz Cup PO SCH ×3 (08:47→19:15)
[2022-11-14 09:00] VITALS: BP 100/40
[2022-11-14 13:00] VITALS: BP 112/54
[2022-11-14 17:00] VITALS: BP 132/67
[2022-11-15 05:00] VITALS: BP 125/55
[2022-11-15] MEDS: LEVOTHYROXINE SODIUM 25 MCG TAB PO SCH (05:58)
[2022-11-15] MEDS: MIDODRINE HCL 10 MG TAB PO SCH ×3 (05:58→17:29)
[2022-11-15 09:02] VITALS: BP 101/55
[2022-11-15] MEDS: Ensure Pudding Vanilla 4 oz Cup PO SCH ×2 (09:14→11:37)
[2022-11-15] MEDS: PIPERACILLIN-TAZOB 3.375GM 100 ML IV SCH ×3 (09:14→23:47)
[2022-11-15] MEDS: SODIUM CHLOR 0.9% PF (SALINE LOCK) 10ML VIAL/SYR IV SCH ×2 (09:19→21:27)
[2022-11-15] MEDS: ENOXAPARIN SOD 40 MG/0.4 ML SYRINGE SC SCH ×2 (09:20→21:27)
[2022-11-15 12:52] VITALS: BP 119/70
[2022-11-15 17:00] VITALS: BP 129/54
[2022-11-15] MEDS: Ensure HIGH Protein Chocolate 8oz Bottle PO SCH (17:32)
[2022-11-15] MEDS: HYDROcodone-ACET 5/325MG TAB PO PRN (21:27)
[2022-11-15 22:00] VITALS: BP 98/56
[2022-11-16 05:00] VITALS: BP 114/65
[2022-11-16] MEDS: MIDODRINE HCL 10 MG TAB PO SCH ×3 (06:09→17:51)
[2022-11-16] MEDS: LEVOTHYROXINE SODIUM 25 MCG TAB PO SCH (06:09)
[2022-11-16] MEDS: PIPERACILLIN-TAZOB 3.375GM 100 ML IV SCH ×3 (07:56→23:51)
[2022-11-16] MEDS: Ensure HIGH Protein Chocolate 8oz Bottle PO SCH ×3 (07:57→17:51)
[2022-11-16] MEDS: SODIUM CHLOR 0.9% PF (SALINE LOCK) 10ML VIAL/SYR IV SCH ×2 (07:57→21:35)
[2022-11-16] MEDS: ENOXAPARIN SOD 40 MG/0.4 ML SYRINGE SC SCH ×2 (08:04→21:35)
[2022-11-16 09:00] VITALS: BP 110/65
[2022-11-16] MEDS: ONDANSETRON HCL 4 MG/2 ML VIAL IV PRN ×2 (11:14→21:36)
[2022-11-16 12:55] VITALS: BP 96/46
[2022-11-16 17:00] VITALS: BP 106/58
[2022-11-16 22:00] VITALS: BP 122/63
[2022-11-17 05:00] VITALS: BP 109/62
[2022-11-17] MEDS: LEVOTHYROXINE SODIUM 25 MCG TAB PO SCH (06:17)
[2022-11-17] MEDS: MIDODRINE HCL 10 MG TAB PO SCH ×3 (06:17→18:25)
[2022-11-17] MEDS: PIPERACILLIN-TAZOB 3.375GM 100 ML IV SCH (08:38)
[2022-11-17] MEDS: Ensure HIGH Protein Chocolate 8oz Bottle PO SCH ×3 (08:38→18:25)
[2022-11-17 09:00] VITALS: BP 116/67
[2022-11-17] MEDS: SODIUM CHLOR 0.9% PF (SALINE LOCK) 10ML VIAL/SYR IV SCH ×2 (09:51→21:24)
[2022-11-17] MEDS: ENOXAPARIN SOD 40 MG/0.4 ML SYRINGE SC SCH ×2 (09:51→21:23)
[2022-11-17 13:00] VITALS: BP 97/59
[2022-11-17] MEDS: metroNIDAZOLE 500 MG TAB PO SCH ×2 (15:51→21:23)
[2022-11-17 17:00] VITALS: BP 125/68
[2022-11-17] MEDS: ACCU-CHEK COMFORT CURVE STRIP VI SCH ×2 (17:12→21:24)
[2022-11-17] MEDS: HYDROcodone-ACET 5/325MG TAB PO PRN (18:42)
[2022-11-17 22:00] VITALS: BP 107/51
[2022-11-17] MEDS ORDERED: INSULIN LANTUS (GLARGINE) 1 /0.01ml (100units/ml) SC SCH (22:00)
[2022-11-18 05:00] VITALS: BP_SYST 102; BP_SYST 123; BP_DIAS 46; BP_DIAS 56
[2022-11-18 05:44] LABS: Basophils # (auto) 0.1 10 ^3/uL (0-0.2); Basophils % (auto) 0.8 % (0.0-2.0); Eosinophils # (auto) 0.2 10 ^3/uL (0-0.8); Eosinophils % (auto) 3.5 % (0.0-7.0); Hematocrit 32.2 % (36.0-46.0); Hemoglobin 10.8 g/dL (12.2-16.2); Lymphocytes % (auto) 27.6 % (10.0-50.0); Mean Corpuscular Hemoglobin 28.4 pg (28.0-32.0); Mean Corpuscular Hgb Conc. 33.6 g/dL (32.0-36.0); Mean Corpuscular Volume 84.5 fL (80.0-100.0); Monocytes # (auto) 0.6 10 ^3/uL (0-1.3); Monocytes % (auto) 8.8 % (0.0-12.0); Neutrophils # (auto) 4.2 10 ^3/uL (1.6-8.6); Neutrophils % (auto) 59.3 % (37.0-80.0); Nucleated Red Blood Cells % 0.1 %; Red Blood Cells 3.82 10^6/uL (4.0-5.20); Red Cell Distribution Width 16.9 % (11.8-14.3); White Blood Cell 7.1 10^3/uL (4.4-10.8)
[2022-11-18] MEDS: LEVOTHYROXINE SODIUM 25 MCG TAB PO SCH (06:01)
[2022-11-18] MEDS: metroNIDAZOLE 500 MG TAB PO SCH ×2 (06:01→13:46)
[2022-11-18] MEDS: MIDODRINE HCL 10 MG TAB PO SCH ×3 (06:01→18:23)
[2022-11-18] MEDS: ACCU-CHEK COMFORT CURVE STRIP VI SCH ×3 (06:02→17:00)
[2022-11-18 06:04] LABS: BUN/Creatinine Ratio 11.6 (10.0-20.0); Calcium 9.2 mg/dL (8.5-10.1); Potassium 3.9 mmol/L (3.5-5.1)
[2022-11-18] MEDS: Ensure HIGH Protein Chocolate 8oz Bottle PO SCH ×3 (08:00→18:25)
[2022-11-18 09:00] VITALS: BP 105/63
[2022-11-18] MEDS ORDERED: levoFLOXacin 500 MG TAB PO SCH (10:00)
[2022-11-18] MEDS: SODIUM CHLOR 0.9% PF (SALINE LOCK) 10ML VIAL/SYR IV SCH (10:30)
[2022-11-18] MEDS: ENOXAPARIN SOD 40 MG/0.4 ML SYRINGE SC SCH (10:30)
[2022-11-18 13:00] VITALS: BP 104/56
[2022-11-18] MEDS: ONDANSETRON HCL 4 MG/2 ML VIAL IV PRN (15:35)
[2022-11-18] MEDS: HYDROcodone-ACET 5/325MG TAB PO PRN (15:35)
[2022-11-18 15:45] VITALS: BP 104/56
[2022-11-18 17:00] VITALS: BP 115/61
== END 2022-11-18 20:17 | DRG 853 ==
LOC: EDBD 14:22 → ER 14:22 → ICU WEST 20:51 → TELE-CENTR 11-13 10:49
PROVIDERS: ADMIT Nurse Practitioner Family; ATTEND Internal Medicine
PROC: 30233N1 Transfusion of Nonautologous Red Blood Cells into Peripheral Vein, Percutaneous Approach (ICD-10-PCS; 2022-11-02)
PROC: 0DBL0ZZ Excision of Transverse Colon, Open Approach (ICD-10-PCS; 2022-11-03)
PROC: 5A1945Z Respiratory Ventilation, 24-96 Consecutive Hours (ICD-10-PCS; 2022-11-03)
PROC: 0BH17EZ Insertion of Endotracheal Airway into Trachea, Via Natural or Artificial Opening (ICD-10-PCS; 2022-11-03)
PROC: 05HD33Z Insertion of Infusion Device into Right Cephalic Vein, Percutaneous Approach (ICD-10-PCS; 2022-11-03)
PROC: B54MZZA Ultrasonography of Right Upper Extremity Veins, Guidance (ICD-10-PCS; 2022-11-03)
PROC: 0D1B0Z4 Bypass Ileum to Cutaneous, Open Approach (ICD-10-PCS; principal; 2022-11-03 12:18)
PROC: 02HV33Z Insertion of Infusion Device into Superior Vena Cava, Percutaneous Approach (ICD-10-PCS; 2022-11-04)
PROC: B548ZZA Ultrasonography of Superior Vena Cava, Guidance (ICD-10-PCS; 2022-11-04)
DX: A41.9 Sepsis, unspecified organism (principal); G93.41 Metabolic encephalopathy; K63.1 Perforation of intestine (nontraumatic); J96.01 Acute respiratory failure with hypoxia; R65.21 Severe sepsis with septic shock; K65.9 Peritonitis, unspecified; N17.9 Acute kidney failure, unspecified; K55.9 Vascular disorder of intestine, unspecified; D68.9 Coagulation defect, unspecified; I13.0 Hypertensive heart and chronic kidney disease with heart failure and stage 1 through stage 4 chronic kidney disease, or unspecified chronic kidney disease; J98.11 Atelectasis; D68.69 Other thrombophilia; C18.6 Malignant neoplasm of descending colon; Z99.11 Dependence on respirator [ventilator] status; Z20.822 Contact with and (suspected) exposure to COVID-19; E11.22 Type 2 diabetes mellitus with diabetic chronic kidney disease; E11.65 Type 2 diabetes mellitus with hyperglycemia; E66.01 Morbid (severe) obesity due to excess calories; Z68.34 Body mass index [BMI] 34.0-34.9, adult; E78.5 Hyperlipidemia, unspecified; E86.1 Hypovolemia; E87.6 Hypokalemia; N18.32 Chronic kidney disease, stage 3b; I50.9 Heart failure, unspecified; I48.0 Paroxysmal atrial fibrillation; T45.515A Adverse effect of anticoagulants, initial encounter; Y92.89 Other specified places as the place of occurrence of the external cause; Z79.01 Long term (current) use of anticoagulants; Z79.82 Long term (current) use of aspirin; Z87.442 Personal history of urinary calculi; Z93.3 Colostomy status; Z95.0 Presence of cardiac pacemaker; Z90.49 Acquired absence of other specified parts of digestive tract
CPT/HCPCS: 36415; 36569; 36600; 71045; 74176; 80048; 80053; 80202; 81001; 82378; 82805; 82962; 83036; 83605; 83690; 83735; 83880; 84100; 84478; 85007; 85025; 85027; 85610; 85730; 86850; 86900; 86901; 87040; 87070; 87076; 87077; 87081; 87205; 87426; 93005; 94002; 94003; 96365; 96367; 97110; 97116; 97163; 97530; 99291; C9113; G0378; J0131; J0330; J0696; J1815; J2250; J2405; J2543; J3430; J3480; J3490; J7060; J7131